=== PATIENT | male | born 1970 | race Caucasian/White ===

== ENCOUNTER 2019-05-18 10:25 | Inpatient (IN) ==
--- NOTE | 2019-05-04 11:23 | PAT Medication Instructions ---
Medication Instructions Date of Service May 04, 2019 Home Medications glucos sul [id number] [Glucosamine Chondroitin] 1 cap PO BID magnesium oxide 400 mg PO QAM paroxetine HCl 20 mg PO QAM ropinirole 2 mg PO HS STOP taking 2 weeks before surgery (or as soon as possible if surgery is within 2 weeks) glucos sul [id number]-C-Mn [Glucosamine Chondroitin] 1 cap PO BID STOP taking 24 hours before surgery ropinirole 2 mg PO HS DO NOT take the morning of surgery magnesium oxide 400 mg PO QAM Take morning of surgery With a small sip of water, OTHERWISE NOTHING TO EAT OR DRINK AFTER MIDNIGHT: paroxetine HCl 20 mg PO QAM Other Notes If you have any questions please call us at [phone] or [phone] or [phone] or [phone]
--- NOTE | 2019-05-05 11:02 | Anesthesiology Consultation ---
Date of Service May 05, 2019 Assessment & Plan (1) Encounter for pre-operative examination: Chart Review Chart Review: Acceptable Risk for Surgery and Patient seen in Pre Admission Testing Teaching & Discussion Pre-Anesthesia Teaching/Discussion Notes: Instructed NPO after midnight before surgery,except medications with 15 cc of water. Medication instructions provided according to the PAT guidelines. History Surgery Operation Date: 05/18/19 13:05 Proposed Procedures p L4-S1 Decompression and Fusion, Spinal Cord Monitoring - Pasha Lundy DO Height/Weight Height: 6 ft 2 in Weight: 102 kg Allergies Allergy/AdvReac Type Severity Reaction Status Date / Time sulfamethoxazole Allergy Unknown Rash Verified 04/28/19 13:18 [From Bactrim] trimethoprim [From Bactrim] Allergy Unknown Rash Verified 04/28/19 13:18 Medications Home Medications Medication Instructions Recorded Confirmed Last Taken glucos sul [id number]-C-Mn 1 cap PO BID 04/28/19 04/28/19 Unknown [Glucosamine Chondroitin] magnesium oxide 400 mg PO QAM 04/28/19 04/28/19 Unknown paroxetine HCl 20 mg PO QAM 04/28/19 04/28/19 Unknown ropinirole 2 mg PO HS 04/28/19 04/28/19 Unknown Past Medical History Medical History (Updated 05/05/19 @ 11:18 by Kell Ortez) Anxiety Arthritis Chronic back pain LLE radiculopathy Restless leg syndrome Exercise / Class Metabolic Activity II 4-5 Yardwork/Stairs/Walk up hill Past Family History Family History Mother Family history of diabetes mellitus Past Surgical History Surgical History History of arthroscopy RIGHT KNEE History of carpal tunnel release RIGHT History of hand surgery WITH BONE GRAFT Hx of vasectomy Past Anesthesia History No Hx of Anesthesia Complications and No Family Hx of Anesthesia Complications History of PONV No Hx of PONV and No Hx of Motion Sickness Social History Smoking Status: Never smoker Do You Dip or Chew Tobacco: No (QUIT 5 YRS AGO) Hx Alcohol Use: Yes Alcohol type: beer alcohol intake frequency: a few times a month Hx Substance Use: No Review of Systems Patient denies chest pain, shortness of breath, dyspnea on exertion, cough, wheezing, palpitations. Physical Exam Vital Signs VITALS BP 117/81 P 76 TEMP 97.9 SP02 96%RA RESP 18 PHYSICAL Full neck and c-spine range of motion. Full TMJ range of motion. TMD 2.5 finger breaths Mallampati Score 3 Dentition: intact Lungs: clear throughout to auscultation Cardiac: regular rate and rhythm, no murmurs noted Spine: normal Carotid arteries: negative bruit Extremities: no edema Testing Laboratory Results 05/05/19 11:20 05/05/19 11:20 PT 10.4 Seconds (9.0-12.0) 05/05/19 11:20 INR 1.0 (0.9-1.1) 05/05/19 11:20 APTT 25.5 Seconds (21.0-31.0) 05/05/19 11:20 Urine Color Yellow 05/05/19 11:20 Urine Appearance Clear (Clear) 05/05/19 11:20 Urine pH 6.5 (4.5-7.5) 05/05/19 11:20 Ur Specific [place] 1.020 (1.000-1.030) 05/05/19 11:20 Urine Protein Negative (Negative) 05/05/19 11:20 Urine Glucose (UA) Negative (Negative) 05/05/19 11:20 Urine Ketones Negative (Negative) 05/05/19 11:20 Urine Nitrite Negative (Negative) 05/05/19 11:20 Ur Leukocyte Esterase Negative (Negative) 05/05/19 11:20 Blood Type A Negative 05/05/19 11:20 Antibody Screen NEGATIVE 05/05/19 11:20 *Surgeon's office made aware of low WBC* Electrocardiogram Date: 05/05/19 Chest X-Ray Date: 05/05/19 Findings: + NAD NSR at 72bpm. iRBBB.
--- NOTE | 2019-05-05 11:56 | XRay Report ---
XR chest Pre-admission PA/Lat CLINICAL HISTORY: pat preoperative evaluation COMPARISON STUDY: No previous studies for comparison. FINDINGS: The bones soft tissues and hemidiaphragms are normal. The cardiomediastinal silhouette is n ormal. The lungs are clear. The pulmonary vasculature is normal. IMPRESSION: Negative chest. ACT 112: Negative or not required by law. The above report was generated using voice recognition software. It may contain grammatical, syntax or spelling errors. Electronically signed by: Renato Balbuena M.D. 05/05/2019 11:54 AM
[2019-05-05 11:58] LABS: Basophils # (auto) 0.02 K/uL (0-0.2); Basophils % (auto) 0.6 %; Eosinophils # (auto) 0.11 K/uL (0-0.5); Hematocrit (blood only) 40.5 % (42-52); Hemoglobin 13.5 g/dL (14.0-18.0); Lymphocytes # (auto) 1.66 K/uL (1.2-3.4); Lymphocytes % (auto) 45.7 %; Mean Corpuscular Hemoglobin 31.5 pg (25-34); Mean Corpuscular Hgb Conc 33.3 g/dL (32-36); Mean Corpuscular Volume 94.4 fL (80-100); Mean Platelet Volume 9.3 fL (7.4-10.4); Monocytes # (auto) 0.34 K/uL (0.11-0.59); Monocytes % (auto) 9.4 %; Neutrophils % (auto) 41.3 %; Platelet Count 281 K/uL (130-400); RDW Coefficient of Variation 13.5 % (11.5-14.5); RDW Standard Deviation 46.5 fL (36.4-46.3); Red Blood Count 4.29 M/uL (4.7-6.1); White Blood Count 3.63 K/uL (4.8-10.8)
[2019-05-05 12:01] LABS: Appearance Urine Clear (Clear); Bilirubin Urine Negative (Negative); Blood Urine Negative (Negative); Color Urine Yellow; Glucose Urine UA Negative (Negative); Ketones Urine Negative (Negative); Leukocyte Esterase Urine Negative (Negative); Nitrite Urine Negative (Negative); Protein Urine Negative (Negative); Urobilinogen Urine Negative (Negative); pH Urine 6.5 (4.5-7.5)
[2019-05-05 12:15] LABS: Partial Thromboplastin Ratio 0.9; Partial Thromboplastin Time 25.5 Seconds (21.0-31.0); Prothrombin Time 10.4 Seconds (9.0-12.0)
[2019-05-05 12:20] LABS: BUN Creatinine Ratio 20.4 (10-20); Calcium 8.6 mg/dl (8.5-10.1); Creatinine Clr Calc Pharmacy 127.9 ml/min; Est GFR (African American) 116.6; Est GFR (Non-African American) 100.6; Potassium 3.8 mmol/L (3.5-5.1)
--- NOTE | 2019-05-05 15:03 | Electrocardiogram Report ---
Test Reason : Blood Pressure : / mmHG Vent. Rate : 072 BPM Atrial Rate : 072 BPM P-R Int : 122 ms QRS Dur : 108 ms QT Int : 390 ms P-R-T Axes : 066 056 045 degrees QTc Int : 427 ms Normal sinus rhythm Incomplete right bundle branch block Borderline ECG No previous ECGs available Confirmed by Jimmy Holder ([id number]) on 05/05/2019 3:02:46 PM Referred By: Pasha Lundy Confirmed By:Hadley Holder
--- NOTE | 2019-05-18 09:14 | History & Physical Bridge Note ---
Date of Service May 18, 2019 History & Physical Bridge Note I have examined the patient, reviewed the History & Physical and in the interval since the performance of the History & Physical I have noted the following changes of clinical significance: no changes noted
--- NOTE | 2019-05-18 09:16 | History & Physical Report ---
Date of Service May 18, 2019 Assessment & Plan (1) Neurogenic claudication due to lumbar spinal stenosis: L4-S1 decompression fusion Present on Admission?: Yes History of Present Illness Chief Complaint: Back and leg pain Primary Care Provider: Patrice Hale MD This is a 48-year-old male who presents with chronic persistent back and leg pain after failing extensive course of nonoperative care is here for surgical invention. Allergies Allergy/AdvReac Type Severity Reaction Status Date / Time sulfamethoxazole Allergy Unknown Rash Verified 04/28/19 13:18 [From Bactrim] trimethoprim [From Bactrim] Allergy Unknown Rash Verified 04/28/19 13:18 Home Medications Home Medications Medication Instructions Recorded Confirmed Type glucos sul [id number]-mrvkx-C-Mn 1 cap PO BID 04/28/19 04/28/19 History [Glucosamine Chondroitin] magnesium oxide 400 mg PO QAM 04/28/19 04/28/19 History paroxetine HCl 20 mg PO QAM 04/28/19 04/28/19 History ropinirole 2 mg PO HS 04/28/19 04/28/19 History Past Med/Surg History Medical History (Updated 05/18/19 @ 09:15 by Pasha Lundy DO) Anxiety Arthritis Chronic back pain LLE radiculopathy Restless leg syndrome Surgical History History of arthroscopy RIGHT KNEE History of carpal tunnel release RIGHT History of hand surgery WITH BONE GRAFT Hx of vasectomy Family History Mother Family history of diabetes mellitus Social History Preferred Language: Danish Communication Ability: Effective Nurse Instructor Required: No Beliefs That Will Affect Care: None Current Living Situation: Spouse and Family Other Information That Helps Us Care for You: No Feels Safe at Home: Yes Safety Concerns: Feels Safe At This Time Smoking Status: Never smoker Do You Dip or Chew Tobacco: No (QUIT 5 YRS AGO) ; Second Hand Exposure: Yes (FAMILY SMOKED) ; Hx Alcohol Use: Yes Alcohol type: beer Hx Substance Use: No Physical Exam Physical Exam: She is alert and oriented neurologically intact.
--- NOTE | 2019-05-18 09:17 | History & Physical Report ---
Date of Service May 18, 2019 History of Present Illness Primary Care Provider: Patrice Hale MD Allergies Allergy/AdvReac Type Severity Reaction Status Date / Time sulfamethoxazole Allergy Unknown Rash Verified 04/28/19 13:18 [From Bactrim] trimethoprim [From Bactrim] Allergy Unknown Rash Verified 04/28/19 13:18 Home Medications Home Medications Medication Instructions Recorded Confirmed Type glucos sul [id number]-C-Mn 1 cap PO BID 04/28/19 04/28/19 History [Glucosamine Chondroitin] magnesium oxide 400 mg PO QAM 04/28/19 04/28/19 History paroxetine HCl 20 mg PO QAM 04/28/19 04/28/19 History ropinirole 2 mg PO HS 04/28/19 04/28/19 History Past Med/Surg History Medical History (Updated 05/18/19 @ 09:15 by Pasha Lundy DO) Anxiety Arthritis Chronic back pain LLE radiculopathy Restless leg syndrome Surgical History History of arthroscopy RIGHT KNEE History of carpal tunnel release RIGHT History of hand surgery WITH BONE GRAFT Hx of vasectomy Family History Mother Family history of diabetes mellitus Social History Preferred Language: Kiswahili Communication Ability: Effective Route Relief Driver Required: No Beliefs That Will Affect Care: None Current Living Situation: Spouse and Family Other Information That Helps Us Care for You: No Feels Safe at Home: Yes Safety Concerns: Feels Safe At This Time Smoking Status: Never smoker Do You Dip or Chew Tobacco: No (QUIT 5 YRS AGO) ; Second Hand Exposure: Yes (FAMILY SMOKED) ; Hx Alcohol Use: Yes Alcohol type: beer Hx Substance Use: No
[~2019-05-18 10:25] MED LIST: ACETAMINOPHEN 500 MG TAB PO SCH; CEFAZOLIN 2000MG 2,000 MG/15 ML SYR IV SCH; CeleBREX 200 MG CAP PO SCH; GABAPENTIN 900 MG DOSE PO SCH; LR 15ML/HR IV SCH
[2019-05-18] MEDS ORDERED: ONDANSETRON INJ 2 MG/ML 2 ML VIAL ONE ×2 (10:30)
[2019-05-18] MEDS ORDERED: DEXAMETHASONE SOD INJ 4 MG/ML VIAL ONE ×2 (10:30)
[2019-05-18] MEDS ORDERED: GLYCOPYRROLATE 0.2 MG/ML VIAL ONE ×2 (10:30)
[2019-05-18] MEDS ORDERED: MIDAZOLAM HCL 1 MG/ML 2ML VIAL ONE (10:30)
[2019-05-18] MEDS ORDERED: PROPOFOL IV EMULSION 10 MG/ML 20 ML VIAL IV ONE (10:30)
[2019-05-18] MEDS ORDERED: fentaNYL citrate 100 MCG/2 ML VIAL ONE (10:30)
[2019-05-18] MEDS ORDERED: LARYING-O-JET KIT (LTA) ONE (10:30)
[2019-05-18] MEDS ORDERED: LIDOCAINE HCL 2% 2 ML VIAL/AMP(20MG/ML) INFIL ONE (10:30)
[2019-05-18] MEDS ORDERED: NEOSTIGMINE METHYLSULFATE 1 MG/ML 10ML VIAL ONE (10:30)
[2019-05-18] MEDS ORDERED: ROCURONIUM BROMIDE 10 MG/ML 5 ML VIAL ONE ×2 (10:30→14:38)
[2019-05-18] MEDS ORDERED: HYDROmorphone INJ 2 MG/ML SYR/VIAL ONE ×2 (10:31→14:09)
[2019-05-18] MEDS ORDERED: ePHEDrine sulfate 50 MG/ML AMP IV PRN (11:36)
[2019-05-18] MEDS ORDERED: fentaNYL citrate 100 MCG/2 ML VIAL IV PRN (11:36)
[2019-05-18] MEDS ORDERED: ONDANSETRON INJ 2 MG/ML 2 ML VIAL IV PRN ×2 (11:36→16:23)
[2019-05-18] MEDS ORDERED: ATROPINE SULFATE 0.1 MG/ML 10ML SYR IV PRN (11:36)
[2019-05-18] MEDS ORDERED: HYDROmorphone INJ 2 MG/ML SYR/VIAL IV PRN (11:36)
[2019-05-18] MEDS ORDERED: BACITRACIN INJ 50,000 UNIT VIAL ONE (11:54)
[2019-05-18] MEDS ORDERED: BUPIVACAINE/EPINEPHRINE 0.25% 1:200,000 30 ML VIAL ONE (11:54)
[2019-05-18] MEDS ORDERED: FLOSEAL HEMOSTATIC MATRIX 10ML TOP ONE (12:55)
[2019-05-18] MEDS ORDERED: PHENYLEPHRINE 100MCG/ML 5ML SYR ONE (13:03)
[2019-05-18] MEDS ORDERED: ePHEDrine sulfate 50 MG/ML SYR ONE (13:03)
[2019-05-18] MEDS ORDERED: ALBUMIN HUMAN 5% 12.5 GM/250 ML VIAL IV ONE ×2 (13:48→14:22)
--- NOTE | 2019-05-18 14:42 | Operative Report ---
Post Operative Report Pre & Post Diagnosis Operation Date: 05/18/19 13:05 Pre-Op Diagnosis: Neurogenic Claudication due to Lumbar Spinal Stenosis L4-S1 Spinal listhesis L5-S1 Post-Op Diagnosis: Same I identified the patient and participated in the time-out.: Yes Procedure Operation Date: 05/18/19 13:05 Actual Procedures #1 lumbar decompression with bilateral medial facetectomies foraminotomies L3-4, L4-5 and L5-S1. #2 posterior spinal fusion L4-5 L5-S1. #3 placement posterior instrumentation L4-5 L5-S1. #4 interbody fusion L4-5 L5-S1. #5 placement peek cage 13 x 26 mm at L4-5 and 12 x 26 mm at L5-S1. #6 placement locally harvested morselized autograft in the posterior lateral gutters. #7 placement infuse collagen sponge master graft in the posterior lateral gutters ostial amp interbody space. Surgeon Pasha Lundy, Station Tender Danita Mcmullen Estimated Blood Loss 550 Findings Consistent with Post-Op Diagnosis Specimens None Indications This is a 48-year-old male who presents above-mentioned diagnosis after failing extensive course of nonoperative care is here for surgical intervention. Description of Procedure Patient was met with identified informed consent obtained. Patient was then taken to the operative suite underwent an patient placed in prone position the Abilio table on top of the Jett frame. All bony prominences well-padded eyes inspected to ensure no external pressure placed upon them. This point the lumbar spine was prepped and draped in the normal sterile fashion. Sharp dissection with the assistance of Bovie cautery was performed down to and exposing the lamina and transverse processes of L4-L5 and sacral ala bilaterally. Obvious bilateral pars defect was noted at L5-S1. Complete laminectomy of L5 L4 and partial laminectomy L3 was performed from a caudal cephalad fashion including bilateral medial facetectomies and foraminotomies to address all stenosis. Pedicle screws were then placed in L4-L5 and the S1 levels bilaterally and appropriate size elmo placed. Through transforaminal approach on right complete discectomy of L5-S1 was performed endplates curetted to subcortical and bone and a 12 x 26 mm peek cage filled with osteo-bone graft tapped in position. Then proceeded L4-[address] of a trans-foraminal approach in the right complete discectomy performed endplates curetted to subcortical being bone and a 13 x 26 mm peek cage filled with osteo-bone graft tapped in position. The rods were then locked in final position bilaterally. The transverse processes of L4-L5 and sacral ala burred to subcortical bleeding bone. Infuse collagen sponge master graft local autograft was placed in the posterior gutters. 15 round MATT drain inserted. Incision was then closed with 1 Vicryl the fascia 2-0 Vicryl subcutaneously and 4 Monocryl for final skin closure. Steri-Strips dressings placed. Patient will continue PACU stable disc. Please note Danita Mcmullen present at the entire procedure involved the patient positioning complex portions of the surgery and final skin closure. Lastly spinal cord monitoring was utilized that the procedure no changes noted. I attest to the content of the Intraoperative Record and any orders documented therein. Any exceptions are noted below.
--- NOTE | 2019-05-18 14:53 | Fluoroscopy Report ---
FL lumbar spine 2-3V CLINICAL HISTORY: L4-S1 DECOMP/FUSION COMPARISON STUDY: None FLUOROSCOPY TIME: 23 seconds NUMBER OF FLUOROSCOPIC IMAGES: 2 FINDINGS: Image intensifier support for an L4-S1 decompression and fusion IMPRESSION: Image intensifier support for an L4-S1 decompression and fusion. ACT 112: Negative or not required by law. The above report was generated using voice recognition software. It may contain grammatical, syntax or spelling errors. Electronically signed by: Renato Balbuena M.D. 05/18/2019 2:51 PM
--- NOTE | 2019-05-18 15:39 | Anesthesiology Progress Note ---
Date of Service May 18, 2019 Anesthesia Post Procedure Vital Signs Vital Signs: Temp Pulse Pulse Resp BP Pulse Ox 05/18/19 15:35 36.5 C 103 H 15 145/96 H 98 05/18/19 15:25 99 H 12 134/96 96 05/18/19 15:15 98 H 15 139/97 97 05/18/19 15:05 36.7 C 109 H 12 145/95 H 99 05/18/19 10:52 36.9 C 64 18 132/86 97 Pain Intensity Back: Pain Intensity: 3 Transfer of Care Handoff Completed per policy Notes Mental Status: alert / awake / arousable and participated in evaluation Patient Amnestic to Procedure: Yes Nausea / Vomiting: adequately controlled Pain: adequately controlled Airway Patency, RR, SpO2: stable & adequate BP & HR: stable & adequate Hydration State: stable & adequate Anesthetic Complications: no major complications apparent and Pt Satisfied with anesthetic care
[2019-05-18] MEDS ORDERED: LORazepam 0.5 MG/1 ML VIAL IV PRN (16:23)
[2019-05-18] MEDS ORDERED: FAMOTIDINE 20 MG TAB PO PRN (16:23)
[2019-05-18] MEDS ORDERED: PROMETHAZINE HCL 12.5 MG in SODIUM CHLORIDE 0.9% 50 ML IV PRN (16:23)
[2019-05-18] MEDS ORDERED: DO NOT ADMINISTER FLU VACCINE PRN (16:23)
[2019-05-18] MEDS ORDERED: METOCLOPRAMIDE HCL INJ 5 MG/ML 2 ML VIAL IV PRN (16:23)
[2019-05-18] MEDS ORDERED: NALOXONE HCL 0.4 MG/1 ML VIAL/CARP IV PRN (16:23)
[2019-05-18] MEDS ORDERED: ACETAMINOPHEN 500 MG TAB PO PRN (16:23)
[2019-05-18] MEDS ORDERED: HYDROmorphone INJ 1 MG/ML SYRINGE IV PRN (16:23)
[2019-05-18] MEDS ORDERED: HYDROmorphone INJ 0.5 MG/0.5 ML SYR IV PRN (16:23)
[2019-05-18] MEDS ORDERED: SOD PHOSPHATE/SOD BIPHOSPHATE ENEMA 132 ML BTL PR PRN (16:23)
[2019-05-18] MEDS ORDERED: TRAMADOL HCL 50 MG TABLET PO PRN (16:23)
[2019-05-18] MEDS ORDERED: ALUMINUM/MAGNESIUM SUSP 30 ML UDC PO PRN (16:23)
[2019-05-18] MEDS ORDERED: bisacodyL 10 MG SUPP PR PRN (16:23)
[2019-05-18] MEDS ORDERED: DO NOT ADMINISTER PNEUMOCOCCAL VACCINE PRN (16:23)
[2019-05-18] MEDS ORDERED: ACETAMINOPHEN 1,000 MG/100 ML VIAL IV PRN (16:23)
[2019-05-18] MEDS ORDERED: LORazepam 0.5 MG TAB PO PRN (16:23)
[2019-05-18] MEDS ORDERED: MAGNESIUM HYDROXIDE SUSP 30 ML UDC PO PRN (16:23)
[2019-05-18] MEDS ORDERED: ONDANSETRON 4 MG OD TAB PO PRN (16:23)
[2019-05-18] MEDS: KETOROLAC 30 MG/ML VIAL IV SCH ×2 (18:44→23:50)
[2019-05-18] MEDS: LACTATED RINGER'S 1,000 ML IV SCH ×2 (18:44→23:51)
[2019-05-18] MEDS: ROPINIROLE HCL 1 MG TABLET PO SCH (20:33)
[2019-05-18] MEDS: DOCUSATE SODIUM/SENNA 50/8.6MG TAB PO SCH (20:33)
[2019-05-18] MEDS: CEFAZOLIN 2000MG 2,000 MG/15 ML SYR IV SCH (20:33)
[2019-05-18] MEDS ORDERED: NON-FORMULARY MEDICATION (Glucos Sul 2kcl-Msm-Chond-C-Mn [Glucosamine Chondroitin] 1 CAP) PO SCH (21:00)
[2019-05-19] MEDS: CEFAZOLIN 2000MG 2,000 MG/15 ML SYR IV SCH (04:23)
[2019-05-19 05:30] LABS: Hematocrit (blood only) 33.2 % (42-52); Hemoglobin 11.2 g/dL (14.0-18.0); Immature Granulocytes # (auto) 0.01 K/uL (0.00-0.02); Immature Granulocytes % (auto) 0.1 %; Lymphocytes # (auto) 1.45 K/uL (1.2-3.4); Mean Corpuscular Hemoglobin 31.7 pg (25-34); Mean Corpuscular Hgb Conc 33.7 g/dL (32-36); Mean Corpuscular Volume 94.1 fL (80-100); Mean Platelet Volume 9.5 fL (7.4-10.4); Monocytes # (auto) 0.64 K/uL (0.11-0.59); Monocytes % (auto) 7.1 %; Neutrophils # (auto) 6.97 K/uL (1.4-6.5); Neutrophils % (auto) 76.8 %; Platelet Count 252 K/uL (130-400); RDW Coefficient of Variation 13.4 % (11.5-14.5); RDW Standard Deviation 46.2 fL (36.4-46.3); Red Blood Count 3.53 M/uL (4.7-6.1); White Blood Count 9.07 K/uL (4.8-10.8)
[2019-05-19] MEDS: POLYETHYLENE (MIRALAX) 17 GM PACK PO SCH ×4 (05:44→23:50)
[2019-05-19] MEDS: KETOROLAC 30 MG/ML VIAL IV SCH ×2 (05:44→11:53)
[2019-05-19 06:02] LABS: BUN Creatinine Ratio 14.8 (10-20); Calcium 8.2 mg/dl (8.5-10.1); Creatinine Clr Calc Pharmacy 119.8 ml/min; Est GFR (African American) 109.3; Est GFR (Non-African American) 94.3
--- NOTE | 2019-05-19 07:54 | Anesthesiology Progress Note ---
Date of Service May 19, 2019 Anesthesia Post Procedure Vital Signs Vital Signs: Temp Pulse Pulse Resp BP Pulse Ox 05/19/19 04:00 36.7 C 83 16 117/67 94 05/18/19 23:18 36.7 C 93 H 18 106/57 L 94 05/18/19 19:11 36.7 C 103 H 16 129/79 97 05/18/19 18:04 36.9 C 103 H 16 123/80 94 05/18/19 17:00 105 H 15 129/83 97 05/18/19 16:25 98 H 14 134/74 97 05/18/19 16:00 36.8 C 108 H 14 136/83 97 05/18/19 15:45 95 H 15 138/93 96 05/18/19 15:35 36.5 C 103 H 15 145/96 H 98 05/18/19 15:25 99 H 12 134/96 96 05/18/19 15:15 98 H 15 139/97 97 05/18/19 15:05 36.7 C 109 H 12 145/95 H 99 05/18/19 10:52 36.9 C 64 18 132/86 97 Pain Intensity Back: Pain Intensity: 5 Notes Mental Status: alert / awake / arousable and participated in evaluation Nausea / Vomiting: adequately controlled Pain: adequately controlled Airway Patency, RR, SpO2: stable & adequate BP & HR: stable & adequate Hydration State: stable & adequate
[2019-05-19] MEDS: MAGNESIUM OXIDE 400 MG TAB PO SCH (08:27)
[2019-05-19] MEDS: PARoxetine HCL 20 MG TAB PO SCH (08:27)
--- NOTE | 2019-05-19 14:03 | Orthopedic Progress Note ---
Date of Service May 19, 2019 Assessment & Plan (1) Neurogenic claudication due to lumbar spinal stenosis: At this time we will continue physical therapy monitor his MATT output. We did consult urology regarding hematuria post removal of his Srinivasan catheter. Present on Admission?: Yes Admission and Anticipated Discharge Date Admission Date: May 18, 2019 Subjective Back pain controlled leg symptoms improved. Physical Exam Physical Exam: Patient is good strength testing comfortable. Results & Data ([facility]) Vital Signs (Past 12 Hours) Vital Signs Temp Pulse Resp BP Pulse Ox 05/19/19 11:56 36.7 C 73 16 124/82 99 05/19/19 04:00 36.7 C 83 16 117/67 94
--- NOTE | 2019-05-19 17:25 | Urology Consultation ---
Date of Consultation May 19, 2019 Assessment & Plan (1) Urethral injury, open: seems the bond balloon caused a small tear in the urethral meatus upon removal bleeding has resolved on its own I do not think he needs any suture I suspect he will have a few more episodes of self limiting bleeding as urine flow will stretch the injury a bit. He may simply apply pressure if this happens if he notes any dry scab develop he may apply some bacitracin or neosporin cream, otherwise simple soap and water daily are all he needs. During healing with some post injury swelling he might notice a very deflected stream so he may want to sit to void until the stream straightens out I can see him in 2 weeks in the [facility] if he has any concerns about healing. Present on Admission?: No History of Present Illness Reason for Consultation: urethral bleeding Requesting Physician: Dr Lundy Attending Physician: Pasha Lundy, DO History of Present Illness I am asked by Dr Lundy to evaluate and treat patient for urethral bleeding. he is POD#1 from lumbar spine surgery with a routine post-op bond. I spoke to his nurse this am. His catheter was difficult to remove this am and the nurse noted the balloon only deflated 8mL of water. Removal was with medium resistance and was painful to patient and he began to bled right after removal. There is suspicion of a small tear. He stopped bleeding about 30 minutes later but once he got up for PT at 11am he started to bleed again. he has not bled for about 5 hours now. Thankfully he has been passing urine easily all day. Allergies Allergy/AdvReac Type Severity Reaction Status Date / Time sulfamethoxazole Allergy Unknown Rash Verified 05/18/19 10:47 [From Bactrim] trimethoprim [From Bactrim] Allergy Unknown Rash Verified 05/18/19 10:47 Home Medications Home Medications Medication Instructions Recorded Confirmed Type glucos sul [id number]-C-Mn 1 cap PO BID 04/28/19 05/18/19 History [Glucosamine Chondroitin] magnesium oxide 400 mg PO QAM 04/28/19 05/18/19 History paroxetine HCl [Paxil] 20 mg PO QAM 04/28/19 05/18/19 History ropinirole 2 mg PO HS 04/28/19 05/18/19 History oxycodone 5 mg PO Q6H PRN #30 tab 05/19/19 Rx tramadol 50 mg PO Q6H PRN #30 tab 05/19/19 Rx Patient History Family History Mother Family history of diabetes mellitus Social History Preferred Language: Guyanese Communication Ability: Effective Gambreler Required: No Beliefs That Will Affect Care: None marital status: Current Living Situation: Spouse and Family Other Information That Helps Us Care for You: No Feels Safe at Home: Yes Safety Concerns: Feels Safe At This Time Smoking Status: Never smoker Do You Dip or Chew Tobacco: No (QUIT 5 YRS AGO) ; Second Hand Exposure: Yes (FAMILY SMOKED) ; Hx Alcohol Use: Yes Alcohol type: beer Hx Substance Use: No Review of Systems Review of Systems: PMH- lumbar spine disc disease with neuropathy PSH- right knee ligament repair, right carpal tunnel release, left finger nerve cadaver graft, vasectomy Soc- no tobacco, alcohol intake irregular but sometimes more than a medium amount. 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 Fam Hx- father had prostate cancer and ME age 60's, mother is DM, brother is schizophrenic and has ME ROS- no fever no chills, no nausea no emesis, bowels have not moved, no rash, no seizure, no chest pain, no shortness of breath, vision is normal Physical Exam Constitutional: WD/WN, vitals as above + well hydrated, well groomed, cooperative and comfortable Respiratory: normal respiratory effort, lungs clear to auscultation Gastrointestinal (Abdomen): normal bowel sounds, soft, nontender, no hepatosplenomegaly Psychiatric: A+Ox3, euthymic affect Genitourinary: circ phallus with a 2mm tear on the ventral meatus, no active bleeding, no subcutaneous bruising. Results & Data Vital Signs (Past 12 Hours) Vital Signs Temp Pulse Resp BP BP Pulse Ox 05/19/19 15:10 37.1 C 80 16 113/71 95 05/19/19 11:56 36.7 C 73 16 124/82 99
[2019-05-19] MEDS: ROPINIROLE HCL 1 MG TABLET PO SCH (19:56)
[2019-05-19] MEDS: DOCUSATE SODIUM/SENNA 50/8.6MG TAB PO SCH (19:57)
[2019-05-20] MEDS: OXYCODONE HCL IR 5 MG TAB (IMMEDIATE RELEASE) PO PRN ×4 (04:43→19:20)
[2019-05-20] MEDS: POLYETHYLENE (MIRALAX) 17 GM PACK PO SCH ×4 (05:59→23:59)
[2019-05-20] MEDS: MAGNESIUM OXIDE 400 MG TAB PO SCH (07:25)
[2019-05-20] MEDS: PARoxetine HCL 20 MG TAB PO SCH (07:25)
--- NOTE | 2019-05-20 12:20 | Orthopedic Progress Note ---
Date of Service May 20, 2019 Assessment & Plan (1) Neurogenic claudication due to lumbar spinal stenosis: This time continue physical therapy monitor MATT output anticipate discharge home tomorrow. Present on Admission?: Yes Admission and Anticipated Discharge Date Admission Date: May 18, 2019 Subjective Back pain controlled leg symptoms improved. Physical Exam Physical Exam: On exam is good strength testing was comfortable. Results & Data ([facility]) Vital Signs (Past 12 Hours) Vital Signs Temp Pulse Resp BP Pulse Ox 05/20/19 12:00 37.1 C 88 16 120/68 96 05/20/19 08:05 82 16 124/76 96
[2019-05-20] MEDS: DOCUSATE SODIUM/SENNA 50/8.6MG TAB PO SCH (20:45)
[2019-05-20] MEDS: ROPINIROLE HCL 1 MG TABLET PO SCH (20:46)
[2019-05-21] MEDS: OXYCODONE HCL IR 5 MG TAB (IMMEDIATE RELEASE) PO PRN ×2 (00:07→04:22)
[2019-05-21] MEDS: POLYETHYLENE (MIRALAX) 17 GM PACK PO SCH ×2 (05:22→11:04)
[2019-05-21] MEDS: PARoxetine HCL 20 MG TAB PO SCH (07:29)
[2019-05-21] MEDS: MAGNESIUM OXIDE 400 MG TAB PO SCH (07:29)
--- NOTE | 2019-05-21 08:55 | Discharge Summary ---
Date of Service May 21, 2019 Principal Diagnosis Lumbar spinal stenosis with neurogenic claudication Discharge Data Allergies Allergy/AdvReac Type Severity Reaction Status Date / Time sulfamethoxazole Allergy Unknown Rash Verified 05/18/19 10:47 [From Bactrim] trimethoprim [From Bactrim] Allergy Unknown Rash Verified 05/18/19 10:47 Consultations 05/18/19 16:23 Consult Case Management - Discharge Planning Routine 05/19/19 11:15 Consult Urology Routine Procedures Performed Operation Date: 05/18/19 13:05 Actual Procedures p L4-S1 Decompression And Instrumented Fusion, with Application of Bone Morphogenetic Protein and Osteoamp Allograft, Interbody Fusions L4-L5, L5-S1, with Spinal Cord Monitoring(Not Applicable) - Pasha Lundy DO Ordered Studies 05/18/19 13:05 FL fluoroscopy <1hr Routine FL lumbar spine 2-3V Routine Hospital Course (1) Neurogenic claudication due to lumbar spinal stenosis: Patient went lumbar decompression fusion tolerated well second orthopedic for postop labor postop day 1 is up and ambulating progressed to postop 2 on postop day #3 pain was controlled MATT drain decreasing probably. Excellent strength testing. Subsequently discharged home. Discharge orders instructions from the chart for further review. Total Time Total Time Spent Total Time Spent (In Minutes): 20 minutes Discharge Plan Discharge Items Patient Disposition: Home - Self-Care Reason For Visit: LUMBAR SPINAL STENOSIS WO NEUROGENIC CLAUDICATION Discharge Diagnosis: Lumbar spinal stenosis with neurogenic claudication Activity: As commented below Non-emergency contact: Primary Care Provider Call non-emergency contact if: you have any medication questions Follow-up/Referrals: Patrice Hale MD [Primary Care Provider] - Diet: Regular Addtl Attending Provider Instructions: ACTIVITY RECOMMENDATIONS: SELF CARE INSTRUCTIONS AFTER THORACIC/LUMBAR FUSIONS 1. You may walk to your tolerance. It is good exercise for your legs and back. Expect some back and intermittent leg aches and pains. 2. You may perform "counter-top" level activities (make a sandwich, lolita with a project, etc.). 3. No bending or lifting of more than 10 pounds or back twisting of any nature (roll like a log when turning in bed). 4. You may ride in a car for 20-30 minutes at a time. No driving until after your first visit with your doctor. 5. Frequent changes of position and restricting sitting to 30 minutes at a time will help limit the amount of back spasms and stiffness you may experience. 6. You may discontinue the use of ambulatory aids (cane, crutches, etc.) once your strength and confidence allow. 7. You may fig bar machine operator the shower and let water strike your incision when you arrive home at least once daily. Do not take a tub bath, sit in a hot tub or go into a swimming pool until after your first recheck in the office. SPECIAL CARE INSTRUCTIONS: VERY IMPORTANT TO READ AND REVIEW A. Your surgical incision has been closed with a cosmetic suture under the skin that will dissolve in about 6 weeks. In 14 days, you can use a pair of clean scissors and cut the suture that is left outside of the skin at the ends of your incision. 1. The small skin tapes can be removed 7 days after surgery if they have not fallen off by that point. 2. You may keep the wound open to air as much as possible to promote healing after post-op day number 5 unless told otherwise by your doctor. 3. If you think the wound looks like it is becoming infected (redness or worsening drainage) and/or you are experiencing fever, chill or worsening back pain and muscle spasms, contact the office so that we may evaluate you as soon as possible. B. Complications are uncommon, but please contact us if you have any signs or symptoms of: 1. wound infection (fever higher than 102.5 degrees F, redness, separation of wound, drainage, or increasing pain from the incision) 2. blood clots in legs (pain, swelling, redness and warmth in legs) 3. urinary tract infection (fever higher than 102.5 degrees F, burning upon urination or increased frequency of urination) 4. nerve problems (inability to walk on your toes or heels, numbness, loss of bowel or bladder control) 5. any other symptoms that concern you C. Please call the office at if you have any concerns or questions about your operation or recovery. D. No smoking! Smoking drastically decreases the chance of a solid fusion. E. Do not take any anti-inflammatory medications (Indocin, Advil, Motrin, Aspirin, Naprosyn, etc.) as these may inhibit the chance of a solid fusion. Tylenol is okay to take for pain. MANAGING PAIN AFTER SPINAL SURGERY 1. Narcotic medication is intended for short-term use and will be provided for surgical pain. Surgical pain usually lasts for a period of 4-6 weeks. Narcotic medication includes Percocet, Vicodin, Darvocet, Tylenol #3 or Lortab. 2. Longer-term pain is more appropriately treated with non-narcotic medication such as Tylenol ES. 3. Muscle spasm is not appropriately treated with narcotics. Muscle relaxers such as Soma, Flexeril or Skelaxin can be used along with Tylenol ES. 4. Remember that we all live with some "aches and pains". This is not unusual or uncommon after an injury or as we get older. a. Back pain is expected and may include muscle spasms for 4 to 6 weeks after surgery. The pain should gradually improve. If the pain worsens for no apparent reason, please contact the office. b. Intermittent leg pain may also be experienced and should not be concerned about unless it worsens for no apparent reason. If so, please contact the office. 5. We will provide appropriate medication within the normal guidelines of their prescribed use. We will also be very cautious and aware of potential abuse and extended duration of patients' medication needs. a. Pain medications are for your comfort and to assist with sleep and rest so that the tissue can heal. They are not provided in order to return to normal activity and should not be used through the day. To do so or worsening pain at night can result from ongoing tissue damage and development of tolerance to the prescribed medicine. 6. Please allow 2-3 days to process refills. Prescriptions will not be mailed but must be picked up at the office. FOLLOW UP VISIT: Keep your scheduled follow-up appointment. Any questions, please call the office at . Pending Studies at Discharge: No Stand-Alone Forms: [employer], Smoking Cessation Medications and DC Order Prescriptions: New tramadol 50 mg tablet 50 mg PO Q6H PRN (Reason: pain, moderate) Qty: 30 RF: 0 oxycodone 5 mg tablet 5 mg PO Q6H PRN (Reason: pain, severe) Qty: 30 RF: 0 Continued ropinirole 2 mg Tablet 2 mg PO HS RF: 0 paroxetine HCl [Paxil] 20 mg Tablet 20 mg PO QAM RF: 0 magnesium oxide 400 mg magnesium Tablet 400 mg PO QAM RF: 0 Glucosamine Chondroitin 550-30-1 mg Capsule 1 cap PO BID RF: 0 Discharge Orders: Discharge Order (Routine); Ordered 05/21/19 Ordered By: Pasha Lundy Admission Data Admit Date/Time: 05/18/19 15:03 Attending Provider: Pasha Lundy Admit Provider: Pasha Lundy Primary Care Provider: Patrice Hale I. Other Providers: Shellie Anand
== END 2019-05-21 13:17 | disposition home or self-care (01) | DRG 454 ==
LOC: ASU 10:25 → 3E 15:03